=== PATIENT | female | born 1970 | race Caucasian/White ===

== ENCOUNTER 2024-03-28 12:46 | Emergency (ER) | payer SELFPAY ==
[~2024-03-28] VITALS: Ht 167.6 cm; Wt 101.6 kg
[2024-03-28 13:00] VITALS: PULSE 94; RESP 18; TEMP 98.4
[2024-03-28] MEDS: ACETAMINOPHEN 325 MG TAB PO ONE (14:06)
[2024-03-28] MEDS: METOCLOPRAMIDE HCL 10 MG/2ML VIAL IM ONE (14:07)
[2024-03-28] MEDS: KETOROLAC TROMETHAMINE 30 MG/ML VIAL IV STA (14:08)
[2024-03-28] MEDS ORDERED: CEFPODOXIME PR100 MG PO (14:09)
[2024-03-28 14:35] VITALS: BP 129/60; PULSE 84; RESP 18; TEMP 98.4; O2SAT 99
== END 2024-03-28 14:20 | disposition home or self-care (01) ==
LOC: FSED 12:52
DX: R30.0 Dysuria (principal); N39.0 Urinary tract infection, site not specified; B34.9 Viral infection, unspecified; R05.9 Cough, unspecified; R51.9 Headache, unspecified; R53.81 Other malaise
CPT/HCPCS: 99283; J1885; J2765